=== PATIENT | female | born 1985 | race Caucasian/White ===

== ENCOUNTER → 2016-07-03 | Outpatient (CLI) | payer OTHER | END | disposition home or self-care (01) | LOC: LAB 15:50 | PROVIDERS: ATTEND Nurse Practitioner Obstetrics & Gynecology | DX: Z34.03 Encounter for supervision of normal first pregnancy, third trimester (principal) | CPT/HCPCS: 86762; 86850; 86900; 87340; 87491; 87591 ==

== ENCOUNTER 2016-08-07 09:26 | Inpatient (IN) | payer OTHER ==
[~2016-08-07] VITALS: Ht 162.6 cm; Wt 73.0 kg
[2016-08-07] MEDS ORDERED: PREN-3 PO (09:40)
[2016-08-07] MEDS ORDERED: OXYTOCIN 30U/ 0.9% NaCL 500ML 500 ML IV ONE (09:41)
[2016-08-07] MEDS ORDERED: OXYTOCIN 30U/ 0.9% NaCL 500ML 500 ML IV PRN (09:41)
[2016-08-07] MEDS ORDERED: D5%-LACTATED RINGERS 1,000 ML IV SCH (09:41)
[2016-08-07] MEDS ORDERED: TERBUTALINE 1 MG/ML, 1ML IVPush PRN (10:00)
[2016-08-07] MEDS ORDERED: FENTANYL PF 100 MCG/2ML IV PRN (10:00)
[2016-08-07] MEDS ORDERED: ONDANSETRON 2MG/ML, 2ML IVPush PRN (10:00)
[2016-08-07] MEDS: LACTATED RINGERS 1,000 ML IV SCH ×3 (10:23→16:41)
[2016-08-07] MEDS ORDERED: OXYTOCIN 30U/ 0.9% NaCL 500ML 500 ML ONE (10:29)
[2016-08-07] MEDS ORDERED: MISOPROSTOL 200 MCG TABLET ONE (10:29)
[2016-08-07] MEDS ORDERED: NEWBORN KIT ONE (10:29)
[2016-08-07] MEDS ORDERED: LIDOCAINE 1%, 20ML ONE (10:29)
[2016-08-07] MEDS ORDERED: LACTATED RINGERS 1,000 ML INTUTE PRN (13:30)
[2016-08-07] MEDS ORDERED: LACTATED RINGERS 1,000 ML INTUTE SCH (13:30)
[2016-08-07] MEDS ORDERED: FENTANYL PF 100 MCG/2ML ONE ×2 (14:21→15:35)
[2016-08-07] MEDS: FENTANYL PF 100 MCG/2ML IVPush PRN ×2 (14:22→15:36)
[2016-08-07] MEDS ORDERED: FENTANYL/BUPIV./NS/PF 250 ML EPIDCONT ONE (16:54)
[2016-08-07] MEDS ORDERED: BUPIVACAINE/PF 0.25% ONE (16:55)
[2016-08-07] MEDS ORDERED: FENTANYL/BUPIV./NS/PF 250 ML EPIDCONT SCH (17:28)
[2016-08-07] MEDS ORDERED: LACTATED RINGERS 1,000 ML IV SCH (17:28)
[2016-08-07] MEDS ORDERED: NALOXONE 0.4 MG/ML, 1ML IVPush PRN (17:30)
[2016-08-07] MEDS ORDERED: LACTATED RINGERS 1,000 ML IVBOLUS PRN (17:30)
[2016-08-07] MEDS: EPHEDRINE 50 MG/ML, 1ML IVPush PRN ×2 (17:36→17:44)
[2016-08-07 19:42] VITALS: BP 114/65
[2016-08-08] MEDS ORDERED: FENTANYL PF 100 MCG/2ML ONE (00:03)
[2016-08-08] MEDS: FENTANYL PF 100 MCG/2ML IVPush PRN (00:07)
[2016-08-08] MEDS ORDERED: OXYTOCIN 30U/ 0.9% NaCL 500ML 500 ML IV SCH (04:07)
[2016-08-08] MEDS ORDERED: MISOPROSTOL 200 MCG TABLET PR PRN (04:30)
[2016-08-08] MEDS ORDERED: MEASLES,MUMPS&RUBELLA VACC/PF 0.5 ML SQ PRN (04:30)
[2016-08-08] MEDS ORDERED: MAGNESIUM HYDROXIDE 8%, 30ML UDC PO PRN (04:30)
[2016-08-08] MEDS ORDERED: DIPH,PERTUSS(ACELL),TET VAC/PF NC IM-VACC PRN (04:30)
[2016-08-08] MEDS ORDERED: BISACODYL 10 MG SUPP PR PRN (04:30)
[2016-08-08] MEDS ORDERED: ACETAMINOPHEN 325 MG TABLET PO PRN ×2 (04:30)
[2016-08-08] MEDS ORDERED: ONDANSETRON 2MG/ML, 2ML IV PRN (04:30)
[2016-08-08] MEDS ORDERED: GLYCERIN ADULT SUPP PR PRN (04:30)
[2016-08-08] MEDS ORDERED: DOCUSATE 100 MG CAPSULE PO PRN (04:30)
[2016-08-08] MEDS ORDERED: HYDROcodone/APAP 10/325 MG TABLET PO PRN (04:30)
[2016-08-08] MEDS ORDERED: CARBOPROST TROMETHAMINE 250 MCG/ML, 1ML IM PRN (04:30)
[2016-08-08] MEDS ORDERED: CALCIUM CARBONATE 500 MG TAB.CHEW PO PRN (04:30)
[2016-08-08] MEDS ORDERED: METOCLOPRAMIDE 5 MG/ML, 2ML IV PRN (04:30)
[2016-08-08] MEDS ORDERED: HYDROcodone/APAP 5/325 TABLET PO PRN (04:30)
[2016-08-08] MEDS ORDERED: METHYLERGONOVINE 0.2 MG/ML IM PRN (04:30)
[2016-08-08] MEDS ORDERED: RHOGAM FROM BLOOD BANK 1 NOTE EA IM/IV ONE (04:30)
[2016-08-08] MEDS ORDERED: IBUPROFEN 600 MG TABLET ONE (06:18)
[2016-08-08] MEDS: IBUPROFEN 600 MG TABLET PO PRN ×2 (06:24→18:32)
[2016-08-08 08:30] VITALS: BP 112/60
[2016-08-08] MEDS: PRENATAL VIT/IRON/FA 1 EACH TABLET PO SCH (08:49)
[2016-08-08] MEDS ORDERED: OXYTOCIN 30U/ 0.9% NaCL 500ML 500 ML IV PRN (09:41)
[2016-08-08 20:00] VITALS: BP 104/68
[2016-08-09] VITALS: BP 110/72
[2016-08-09 08:25] VITALS: BP 103/67
[2016-08-09] MEDS: PRENATAL VIT/IRON/FA 1 EACH TABLET PO SCH (09:00)
[2016-08-09] MEDS ORDERED: IBUP-1222 PO (14:06)
[2016-08-09] MEDS ORDERED: HYDR-3240 PO (14:06)
[2016-08-09] MEDS ORDERED: DOCU-30 PO (14:07)
== END 2016-08-09 14:50 | disposition home or self-care (01) | DRG 775 ==
LOC: LDIP 09:26 → 2NW 08-08 08:10
PROVIDERS: ADMIT Student in an Organized Health Care Education/Training Program; ATTEND Student in an Organized Health Care Education/Training Program
PROC: 10E0XZZ Delivery of Products of Conception, External Approach (ICD-10-PCS; principal; 2016-08-08)
PROC: 0KQM0ZZ Repair Perineum Muscle, Open Approach (ICD-10-PCS; 2016-08-08)
PROC: 00HU33Z Insertion of Infusion Device into Spinal Canal, Percutaneous Approach (ICD-10-PCS; 2016-08-08)
PROC: 3E0R3CZ (ICD-10-PCS; 2016-08-08)
DX: O42.92 Full-term premature rupture of membranes, unspecified as to length of time between rupture and onset of labor (principal); O48.0 Post-term pregnancy; O70.1 Second degree perineal laceration during delivery; O76 Abnormality in fetal heart rate and rhythm complicating labor and delivery; Z3A.41 41 weeks gestation of pregnancy; Z90.49 Acquired absence of other specified parts of digestive tract; Z37.0 Single live birth; Z23 Encounter for immunization
CPT/HCPCS: 36415; 82803; 85025; 86850; 86900; 90715; J3010; J2590; J7120